=== PATIENT | male | born 1995 | race Two or more races ===

== ENCOUNTER 2025-02-25 20:05 | Emergency (ER) | payer BC, MEDICAID, SELFPAY ==
[2025-02-25 20:08] VITALS: BMI 42.3
[2025-02-25 20:32] VITALS: BP 139/86; PULSE 73; RESP 18; TEMP 36.7; O2SAT 98
--- NOTE | 2025-02-25 20:44 | PD.EDADULT ---
ED General RME/HPI General Chief complaint: General Adult/Misc Complain Stated complaint: LOW BACK AND TESTICAL PAIN Time Seen by Provider: 02/25/25 20:34 Arrival date/time: 02/25/25 20:05 Related Data Allergies Allergy/AdvReac Type Severity Reaction Status Date / Time No Known Allergies Allergy Verified 02/25/25 20:11 Review of Systems Review of Systems Systems Reviewed: All systems reviewed, normal except as documented ED Exam Narrative Physical exam: Physical Exam GENERAL: NAD, AAOx3 HEENT: Moist mucosa. Eyes open, symmetrical, & clear CARDIO: Heart RRR, no obvious murmurs PULM: No noted coughing/dyspnea CTA B/L, no R/W/R GI: Abdomen soft, nondistended, no pain on palpation. BSx4 SKIN/MSK/EXT: No wounds/rashes/edema/amputations, no pain on palpation. Pedal pulses present B/L NEURO: AAOx3, no focal neuro deficits, able to move all 4 extremities Course Quality Measures none Orders Category Date Time Status CT abdomen pelvis wo con Stat Exams 02/25/25 20:47 Completed CBC Stat Lab 02/25/25 21:02 Completed CMP [Comprehensive Metabolic Panel] Stat Lab 02/25/25 21:02 Completed Lactic Acid [Lactate (Lactic Acid)] Stat Lab 02/25/25 21:02 Completed Urinalysis Stat Lab 02/25/25 22:00 Completed Ibuprofen Tab [Motrin Tab] Med 02/26/25 01:17 Discontinued 800 mg PO X1 ONE Vital Signs Vital signs: Vital Signs Temperature 98.1 F 02/25/25 20:32 Pulse Rate 73 02/25/25 20:32 Respiratory Rate 18 02/25/25 20:32 Blood Pressure 139/86 H 02/25/25 20:32 Pulse Oximetry (%) 98 02/25/25 20:32 Oxygen Delivery Method Room Air 02/25/25 20:32 Discharge Plan Plan Patient Disposition: HOME (Self Care) Prescriptions/Referrals Referrals: Timothy German MD [Primary Care Provider] - In 1 week Problem List Clinical Impression: Muscle spasm Patient/Caregiver Discharge Instructions Additional Instructions: Follow up with your private doctor within 1 week of discharge. Take ibuprofen as needed for pain. Should any symptoms recur or worsen patient is instructed to return to the ED. Print Language: [place] Citizen Stand Alone Forms: Jaclyn Award Info., Patient Portal Info Letter MDM Narrative MDM hospital course: 29 y/o M who presented to the ED due to back pain. He states he started having pain in bilateral flanks around 1 week ago that has progressively become worse. Initially started around his back but also noticed pain in the lower quadrant regions and in his testicles. He also endorses pain with urination and increased effort to go to the bathroom to uriante. He denies fever, chills, shortness of breath, chest pain, recent sexual partners. 0127: symptoms have resolved patient, will give ibuprofen 800mg x1, patient stable fro discharge att his time with strict return precautions. Clinical Information Provided by patient Medical Records Reviewed None Chronic Illness/Social Conditions which may negatively complicate care or outcome(s)-explain: None or not applicable Lab Interpretation Labs: interpreted by me Lab(s) interpretation(s): CBC, CMP, UA unremarkable. Imaging Imaging interpretation: see narrative above Medication Administration(s) Medication Administration History Discontinued Medications Ibuprofen (Ibuprofen Tab 400 Mg Tablet) 800 mg PO X1 ONE Stop: 02/26/25 01:18 Last Admin: 02/26/25 01:23 Dose: 800 mg Documented By: VANESSA see above Dispositon Disposition: Discharge Home
--- NOTE | 2025-02-25 20:47 | XR_ITS ---
Examination: CT abdomen and pelvis without contrast. Coronal 3-D reconstructions. Sagittal 2-D reconstructions. Date and time of exam:February 25, 2025 1127 hours INDICATIONS: Lower back flank and testicular pain beginning 3 days ago CTDI: vol (mGy): 14.2 DLP: (mGycm): 1058 Technique: Axial images of the abdomen have been obtained, 3 mm slice thickness Intravenous contrast material has not been administered. Low dose protocols were performed. One or more of the following dose reduction techniques were used; automated exposure control, adjustment of the mA and/or KV according to patient size, use of iterative reconstruction technique. Findings: Fatty infiltration throughout the liver, no focal liver or splenic lesions No gallstones No pancreatic or adrenal mass No renal or ureteral calculi Aorta normal size Normal appendix No bowel obstruction No bladder mass or bladder calculi No hernia defects Osseous structures are intact IMPRESSION: No renal or ureteral calculi, no hydronephrosis Normal appendix No bladder mass or bladder calculi
[2025-02-25 21:25] LABS: Lactate (Lactic Acid) 1.0 mMol/L (0.4-2.0)
[2025-02-25 21:36] LABS: Basophils # (Auto) 0.0 Thou/mm3 (0.0-0.2); Basophils % (Auto) 0 % (0-2.5); Eosinophils # (Auto) 0.2 Thou/mm3 (0.0-0.5); Eosinophils % (Auto) 3 % (0-10); Hematocrit 42.6 % (41.0-53.0); Hemoglobin 15.4 g/dL (13.5-16.0); Immature Granulocytes Auto 0.03 Thou/mm3 (0.00-0.00); Lymphocytes # (Auto) 2.1 Thou/mm3 (1.0-4.8); Lymphocytes % (Auto) 33 % (10-50); Mean Corpuscular HGB Conc 36.2 g/dl (31.0-37.0); Mean Corpuscular Hemoglobin 32.8 pg (25.0-35.0); Mean Corpuscular Volume 91 fL (80-100); Monocytes # (Auto) 0.5 Thou/mm3 (0.0-0.8); Monocytes % (Auto) 8 % (0-12); Neutrophils # (Auto) 3.5 Thou/mm3 (1.8-7.7); Neutrophils % (Auto) 56 % (37-80); Nucleated Red Blood Cell # 0.00 Thou/mm3 (0.00-0.00); Nucleated Red Blood Cell % 0 /100 WBC (0); Platelet Count 144 Thou/mm3 (140-440); RDW Standard Deviation 41.4 fL (35.1-43.9); Red Blood Count 4.70 Miln/mm3 (4.50-5.90); White Blood Count 6.3 Thou/mm3 (3.8-10.6)
[2025-02-25 21:46] LABS: Alanine Aminotransferase 48 U/L (10-49); Albumin, Serum 4.6 gm/dL (3.5-5.0); Albumin/Globulin Ratio 1.6 (1.2-2.2); Alkaline Phosphatase 100 U/L (46-116); Anion Gap 9 (7-16); Aspartate Amino Transferase 37 U/L (0-34); BUN/Creatinine Ratio 8 Ratio (12-20); Bilirubin,Total 0.5 mg/dL (0.3-1.2); Blood Urea Nitrogen 10 mg/dL (9-23); Calcium 9.4 mg/dL (8.3-10.6); Calcium (Corrected) 9.4 mg/dL (8.5-10.1); Carbon Dioxide 26.5 mMol/L (20.0-31.0); Chloride 106 mMol/L (98-107); Creatinine (Component) 1.3 mg/dL (0.6-1.3); Estimated Creatinine Clearance 113.3 mL/min (>60); Globulin 2.8 gm/dL (2.3-3.5); Glucose 96 mg/dL (74-106); Osmolality,Calculated 280 (275-295); Potassium 4.3 mMol/L (3.4-5.1); Sodium 141 mMol/L (136-145); Total Protein 7.4 gm/dL (5.7-8.2); eGFR > 60 See Note
[2025-02-25 22:20] LABS: Collection Type, Urine Clean Catch; Squamous Epithelial Cell,Urine 0 /hpf (0-5)
[2025-02-25 22:59] LABS: Bilirubin,Urine Negative (Negative); Blood,Urine Negative (Negative); Clarity,Urine Clear (Clear/Hazy); Color,Urine Lt-Yellow (Lt Yel-Yel); Glucose, Urine Negative (Negative); Ketones,Urine Negative (Negative); Leukocyte Esterase,Urine Negative (Negative); Nitrite,Urine Negative (Negative); PH,Urine 6.0 (5.0-7.0); Protein,Urine Negative (Neg - Trace); RBC,Urine 1 /hpf (0-3); Specific Gravity,Urine 1.016 (1.001-1.035); Urobilinogen,Urine Negative mg/dL (0.0-1.0); WBC,Urine 1 /hpf (0-5)
[2025-02-26 00:35] VITALS: BP 128/76; PULSE 76; RESP 16; TEMP 36.8; O2SAT 98
[2025-02-26] MEDS: IBUPROFEN TAB 400 MG TABLET 800 MG PO (01:23)
== END 2025-02-26 01:26 | disposition home or self-care (01) ==
PROVIDERS: Emergency Provider Student in an Organized Health Care Education/Training Program; PCP Family Medicine
DX: M62.838 Other muscle spasm (principal)
CPT/HCPCS: 36415; 74176; 80053; 81001; 83605; 85025; 99284; A9270